=== PATIENT | female | born 1985 | race Caucasian/White ===

== ENCOUNTER 2020-09-01 05:07 | Inpatient (IN) | payer BC ==
[2020-09-01] MEDS ORDERED: Misoprostol 200 MCG Tab PO PRN (05:16)
[2020-09-01] MEDS ORDERED: Methylergonovine 0.2 MG/1 ML Amp IM PRN (05:16)
[2020-09-01] MEDS ORDERED: Lidocaine 1% 50 ML MDV INJECT PRN (05:16)
[2020-09-01] MEDS ORDERED: Water For Irrigation,Sterile 1,000 ML Container IRR PRN (05:16)
[2020-09-01] MEDS ORDERED: Sodium Chloride 0.9% 10 ML SDV IV PRN (05:16)
[2020-09-01] MEDS ORDERED: Nalbuphine 10 MG/1 ML Vial IVPUSH PRN (05:16)
[2020-09-01] MEDS ORDERED: Sodium Chloride 0.9% 2.5 ML Syringe FLUSH PRN (05:16)
[2020-09-01] MEDS ORDERED: Tranexamic Acid 1,000 MG in Sodium Chloride 0.9% 100 ML IV PRN ×2 (05:16→08:55)
[2020-09-01] MEDS ORDERED: Citric Acid/Sodium Citrate Solution 30 ML Cup PO ONE (05:16)
[2020-09-01] MEDS ORDERED: Sodium Chloride 0.9% 10 ML Syringe FLUSH PRN (05:16)
[2020-09-01] MEDS ORDERED: Butorphanol 1 MG/ML SDV IVPUSH PRN (05:16)
[2020-09-01] MEDS ORDERED: Carboprost Tromethamine 250 MCG/1 ML Amp IM PRN (05:16)
[2020-09-01] MEDS ORDERED: ceFAZolin 2 GM in Premix Bag 1 BAG IV ONE (05:16)
[2020-09-01] MEDS ORDERED: Lactated Ringers 1,000 ML IV SCH ×2 (05:30→09:00)
[2020-09-01] MEDS ORDERED: Oxytocin/0.9 % Sodium Chloride 30 UNIT/500 ML BAG IV SCH ×2 (05:30)
[2020-09-01] MEDS: Lactated Ringers 1,000 ML IV SCH ×2 (05:45→06:48)
[2020-09-01] MEDS ORDERED: Morphine PF 10 MG/10 ML SDV ONE (07:32)
[2020-09-01] MEDS ORDERED: Octyl 2-Cyanoacrylate 1 Tube ONE (07:43)
--- NOTE | 2020-09-01 07:49 | PCM.PREANE ---
Preanesthetic Assessment - Anesthesia/Transfusion/Family Hx Anesthesia History: Prior Anesthesia Without Reaction Family History of Anesthesia Reaction: No Transfusion History: No Prior Transfusion(s) Intubation History: Unknown - Review of Systems General: No Symptoms Pulmonary: No Symptoms Cardiovascular: No Symptoms Gastrointestinal: No Symptoms Neurological: No Symptoms Other: Reports: None - Physical Assessment Height: 5 ft 5 in Weight: 101.605 kg ASA Class: 2 Mental Status: Alert & Oriented x3 Airway Class: Mallampati = 1 Dentition: Reports: Normal Dentition Thyro-Mental Finger Breadths: 3 Mouth Opening Finger Breadths: 3 ROM/Head Extension: Full Lungs: Clear to Auscultation, Normal Respiratory Effort Cardiovascular: Regular Rate, Regular Rhythm - Lab Values: Laboratory Last Values WBC 10.72 K/uL (4.0-11.0) 09/01/20 05:46 RBC 4.30 M/uL (4.30-5.90) 09/01/20 05:46 Hgb 12.8 g/dL (12.0-16.0) 09/01/20 05:46 Hct 38.6 % (36.0-46.0) 09/01/20 05:46 MCV 89.8 fL (80.0-98.0) 09/01/20 05:46 MCH 29.8 pg (27.0-32.0) 09/01/20 05:46 MCHC 33.2 g/dL (31.0-37.0) 09/01/20 05:46 RDW Std Deviation 42.7 fl (28.0-62.0) 09/01/20 05:46 RDW Coeff of Geoffrey 13 % (11.0-15.0) 09/01/20 05:46 Plt Count 329 K/uL (150-400) 09/01/20 05:46 MPV 10.10 fL (7.40-12.00) 09/01/20 05:46 Nucleated RBC % 0.0 /100WBC 09/01/20 05:46 Nucleated RBCs # 0 K/uL 09/01/20 05:46 - Allergies Allergies/Adverse Reactions: Allergies Allergy/AdvReac Type Severity Reaction Status Date / Time erythromycin base Allergy Diarrhea Verified 08/26/20 09:37 latex Allergy Rash Verified 08/26/20 09:41 nickel Allergy Rash Verified 10/14/20 09:41 Sulfa (Sulfonamide Allergy Rash Verified 08/26/20 09:37 Antibiotics) sulfamethoxazole Allergy Rash Verified 05/25/20 18:00 [From Bactrim] trimethoprim [From Bactrim] Allergy Rash Verified 08/26/20 09:37 - Blood Blood Available: No - Anesthesia Plan Pre-Op Medication Ordered: None - Acknowledgements Anesthesia Type Planned: Spinal (general anesthesia back-up plan) Pt an Appropriate Candidate for the Planned Anesthesia: Yes Alternatives and Risks of Anesthesia Discussed w Pt/Guardian: Yes Pt/Guardian Understands and Agrees with Anesthesia Plan: Yes PreAnesthesia Questionnaire HEENT History: Reports: Other (See Below) Other HEENT History: wears glasses/contacts, has permanent lower dental retainer Cardiovascular History: Reports: None Respiratory History: Reports: None Gastrointestinal History: Reports: Other (See Below) Other Gastrointestinal History: occasional heartburn with Genitourinary History: Reports: None [employer] History: Reports: Musculoskeletal History: Reports: Fracture Other Musculoskeletal History: hx fx left thumb Neurological History: Reports: Migraines Psychiatric History: Reports: Anxiety, Depression Other Psychiatric History: hx of post depression Endocrine/Metabolic History: Reports: Obesity/BMI 30+ Hematologic History: Reports: None Immunologic History: Reports: None Oncologic (Cancer) History: Reports: None Dermatologic History: Reports: None - Infectious Disease History Infectious Disease History: Reports: Chicken Pox - Past Surgical History Head Surgeries/Procedures: Reports: None HEENT Surgical History: Reports: Oral Surgery Cardiovascular Surgical History: Reports: None Respiratory Surgical History: Reports: None GI Surgical History: Reports: None Female Surgical History: Reports: Section Endocrine Surgical History: Reports: None Neurological Surgical History: Reports: None Musculoskeletal Surgical History: Reports: None Oncologic Surgical History: Reports: None - SUBSTANCE USE Tobacco Use Status *Q: Never Tobacco User Second Hand Smoke Exposure: No Recreational Drug Use History: No - HOME MEDS Home Medications: Home Meds Doxylamine Succinate [Unisom] 0.5 tab PO BEDTIME 08/26/20 [History] Pnv No.95/Ferrous Fum/Folic AC [ Vitamin Tablet] 1 tab PO DAILY 08/26/20 [History] - CURRENT (IN HOUSE) MEDS Current Meds: Current Medications Butorphanol Tartrate (Stadol) 1 mg IVPUSH Q1H PRN PRN Reason: Pain Carboprost Tromethamine (Hemabate Ds) 250 mcg IM ASDIRECTED PRN PRN Reason: Post Hemorrhage Oxytocin/Sodium Chloride (Oxytocin 30 Unit/500 Ml-Ns) 30 unit in 500 mls @ 250 mls/hr IV TITRATE AILIN Lactated Ringer's (Ringers, Lactated) 1,000 mls @ 150 mls/hr IV ASDIRECTED AILIN Oxytocin/Sodium Chloride (Oxytocin 30 Unit/500 Ml-Ns) 30 unit in 500 mls @ 999 mls/hr IV TITRATE AILIN Tranexamic Acid 1,000 mg/ (Sodium Chloride) 110 mls @ 660 mls/hr IV ONETIME PRN PRN Reason: Bleeding Lactated Ringer's (Ringers, Lactated) 1,000 mls @ 500 mls/hr IV BOLUS [facility] Last Admin: 09/01/20 06:48 Dose: 500 mls/hr Documented by: Lidocaine HCl (Xylocaine 1%) 50 ml INJECT ONETIME PRN PRN Reason: Laceration repair Methylergonovine Maleate (Methergine) 0.2 mg IM ASDIRECTED PRN PRN Reason: Post Hemorrhage Misoprostol (Cytotec) 200 mcg PO ONETIME PRN PRN Reason: Post Hemorrhage Nalbuphine HCl (Nubain) 10 mg IVPUSH Q1H PRN PRN Reason: Pain (severe 7-10) Sodium Chloride (Saline Flush) 10 ml FLUSH ASDIRECTED PRN PRN Reason: Keep Vein Open Sodium Chloride (Saline Flush) 2.5 ml FLUSH ASDIRECTED PRN PRN Reason: Keep Vein Open Sodium Chloride (Normal Saline) 10 ml IV ASDIRECTED PRN PRN Reason: IV Use Sterile Water (Sterile Water For Irrigation) 1,000 ml IRR ASDIRECTED PRN PRN Reason: delivery Discontinued Medications Citric Acid/Sodium Citrate (Bicitra Solution) 30 ml PO ONETIME ONE Stop: 09/01/20 05:17 Cefazolin Sodium/Dextrose 2 gm (/ Premix) 50 mls @ 100 mls/hr IV ONETIME ONE Stop: 09/01/20 05:45 Morphine Sulfate (Duramorph Pf) Confirm Administered Dose 10 mg .ROUTE .STK-MED ONE Stop: 09/01/20 07:33 Octyl Cyanoacrylate (Dermabond Advance) Confirm Administered Dose 1 applic .ROUTE .STK-[facility] ONE Stop: 09/01/20 07:44
[2020-09-01] MEDS ORDERED: Oxytocin 10 Units/1 ML SDV ONE (08:21)
[2020-09-01] MEDS ORDERED: Ketorolac 30 MG/ML SDV ONE (08:27)
[2020-09-01] MEDS ORDERED: ePHEDrine 50 MG/ML SDV ONE (08:27)
[2020-09-01] MEDS ORDERED: Dexamethasone 4 MG/ML 5 ML MDV ONE (08:27)
[2020-09-01] MEDS: Ketorolac 30 MG/ML SDV IVPUSH SCH ×3 (08:30→21:04)
[2020-09-01] MEDS ORDERED: Acetaminophen/HYDROcodone 325-5 MG Tab PO PRN (08:44)
[2020-09-01] MEDS ORDERED: Acetaminophen/oxyCODONE 325-5 MG Tab PO PRN ×2 (08:44→08:55)
--- NOTE | 2020-09-01 08:53 | PCM.OPNOTE ---
- General Post-Op/Procedure Note Date of Surgery/Procedure: 09/01/20 Operative Procedure(s): repeat low transverse Pre Op Diagnosis: normal pelvic. Liveborn female 07/22 weight 3340 grams Post-Op Diagnosis: Same Anesthesia Technique: Spinal Primary Surgeon: Charu Biggs Secondary Surgeon: Kiley Blackwood Anesthesia Provider: France Melendez Pathology: none Fluid Replacement, Intraop: 1,900 Output, Urine Amount: 200 EBL in mLs: 500 Complications: None Known Condition: Good
[2020-09-01] MEDS ORDERED: Ibuprofen 800 MG Tab PO PRN (08:55)
[2020-09-01] MEDS ORDERED: Oxytocin 10 Units/1 ML SDV IM PRN (08:55)
[2020-09-01] MEDS ORDERED: Ondansetron 4 MG/2 ML SDV IVPUSH PRN (08:55)
[2020-09-01] MEDS ORDERED: Bisacodyl 10 MG Supp RECTAL PRN (08:55)
[2020-09-01] MEDS ORDERED: Lanolin 100% Cream 7 GM Tube TOP PRN (08:55)
[2020-09-01] MEDS ORDERED: diphenhydrAMINE 50 MG/ML SDV IVPUSH PRN (08:55)
[2020-09-01] MEDS ORDERED: Oxytocin/Lactated Ringers 30 UNIT/500 ML BAG IV SCH (09:00)
--- NOTE | 2020-09-01 09:49 | PCM.POSTAN ---
POST ANESTHESIA ASSESSMENT - MENTAL STATUS Mental Status: Alert, Oriented - VITAL SIGNS Vital Signs: Last Vital Signs Temp 36.9 C 09/01/20 08:53 Pulse 65 09/01/20 09:31 Resp 15 09/01/20 09:31 BP 124/73 09/01/20 09:31 Pulse Ox 95 09/01/20 09:31 - RESPIRATORY Respiratory Status: Respiratory Rate WNL, Airway Patent, O2 Saturation Stable - CARDIOVASCULAR CV Status: Pulse Rate WNL, Blood Pressure Stable - GASTROINTESTINAL GI Status: No Symptoms - PAIN Pain Score: 0 - POST OP HYDRATION Hydration Status: Adequate & Stable - OBSERVATIONS Free Text/Narrative:: No anesthesia problems
[2020-09-01] MEDS: diphenhydrAMINE 50 MG/ML SDV IVPUSH PRN ×2 (12:12→19:44)
--- NOTE | 2020-09-01 14:04 | OR ---
SURGEON: Charu Biggs M.D. DATE OF PROCEDURE: 09/01/2020 PREOPERATIVE DIAGNOSES: 1. A 39-week intrauterine . 2. Prior delivery, desires repeat. POSTOPERATIVE DIAGNOSES: 1. A 39-week intrauterine . 2. Prior delivery, desires repeat. PROCEDURE: Repeat low-transverse section. DIETETIC TECH: Kiley Blackwood MD ANESTHESIA: Spinal. ESTIMATED BLOOD LOSS: 500 mL. FLUIDS: 1900 mL crystalloid. URINE OUTPUT: 200 mL. FINDINGS: Liveborn female, scores of 9 and 9, weighing 3340 g. Normal-appearing uterus, tubes, and ovaries. COMPLICATIONS: None known. DISPOSITION: Stable, to Recovery. BRIEF HISTORY: This is a 35-year-old female. She presents at 39 weeks, prior delivery, desires repeat, with uncomplicated care. She has consented for a repeat including risks of bleeding; infection; injury to bowel, bladder, blood vessels, ureters, or other organs; risk of thromboembolic event; and risk of anesthesia. She has also declined a vaginal trial of labor. Understanding these risks and options, she does desire to proceed with repeat low-transverse section. DESCRIPTION OF PROCEDURE: With the patient in the left tilt position, under adequate spinal analgesia, the abdomen was prepped with chlorhexidine and draped in the usual fashion for abdominal surgery. SCDs were in place. Camacho catheter was in place. An appropriate time-out was held. She had received 2 g of Ancef IV. After documentation of adequate analgesia, the prior cicatrix was excised, and the transverse curvilinear incision was carried through the subcutaneous tissue to the fascia which was scored transversely in the midline. The fascial incision was extended laterally using curved Sanchez scissors. The fascia was elevated from the underlying rectus muscle using sharp and blunt dissection. The rectus muscles were bluntly . The parietal peritoneum was elevated and incised. A finger was placed into the peritoneal cavity, and the incision was extended cephalad and caudad using sharp and blunt dissection. The Rosendo O C- section retractor was placed. The visceral peritoneum over the lower uterine segment was incised to develop an adequate bladder flap. A transverse curvilinear incision was made over the lower uterine segment with a scalpel. A finger was used to enter the amniotic cavity, and with fundal pressure, the head and body were delivered via the uterine incision. The infant was bulb suctioned by nose and mouth, and after 1 minute, the cord was doubly clamped and cut. The was handed to the nurse in attendance at delivery. The infant was a liveborn female, scores of 9 and 9, weighing 3340 g. Cord blood was collected for cord ABGs as well as routine cord blood sampling. Pitocin was initiated after delivery of the infant to assist with delivery of the placenta which was delivered with manual extraction as well as fundal massage, and the cervix was opened with ring forceps. The uterus was cleaned with a dry laparotomy tape. The uterine incision was closed with a running lock suture of 0 Polysorb followed by an imbricating layer of 0 Polysorb. Tubes and ovaries were inspected and were normal. The incision was inspected and was hemostatic. Therefore, the Rosendo O retractor was removed. Final inspection of the incision confirmed hemostasis. The rectus muscle and peritoneum were loosely approximated in the midline using a running mattress suture of 0 Polysorb. The posterior aspect of the fascia was inspected and was hemostatic. The fascial incision was closed with a running suture of 0 Polysorb. The subcutaneous tissue was irrigated. Any areas of bleeding that were noted were cauterized, and the deep subcutaneous tissue was closed with a running suture of 0 Polysorb. Skin was closed with a running subcuticular suture of 3-0 Monocryl followed by Dermabond. Final sponge, needle, and instrument counts were reported as correct. There were no known complications. The patient was transferred to Recovery in good condition. MELBA / BECCA /[id number]
[2020-09-01] MEDS: Docusate Sodium 100 MG Cap PO SCH ×2 (17:33→21:04)
[2020-09-02] MEDS: diphenhydrAMINE 50 MG/ML SDV IVPUSH PRN (00:40)
[2020-09-02] MEDS: Ketorolac 30 MG/ML SDV IVPUSH SCH ×2 (02:57→09:11)
--- NOTE | 2020-09-02 06:15 | PCM48HPAN ---
Post Anesthesia Note - EVALUATION WITHIN 48HRS OF ANESTHETIC Vital Signs in Normal Range: Yes Patient Participated in Evaluation: Yes Respiratory Function Stable: Yes Airway Patent: Yes Cardiovascular Function Stable: Yes Hydration Status Stable: Yes Pain Control Satisfactory: Yes Nausea and Vomiting Control Satisfactory: Yes Mental Status Recovered: Yes Vital Signs: Last Vital Signs Temp 36.8 C 09/02/20 04:00 Pulse 77 09/02/20 05:00 Resp 16 09/02/20 05:00 BP 110/68 09/02/20 04:00 Pulse Ox 95 09/02/20 05:00 - COMMENTS/OBSERVATIONS Free Text/Narrative:: Patient has concerns about swelling in her legs, otherwise no complaints at this time. I informed her that some of the swelling is probably a result of the fluid shifts in her body. I also told her to let Dr. Biggs know about the bilateral leg swelling. There were no apparent anesthetic complications at this time.
[2020-09-02] MEDS: Docusate Sodium 100 MG Cap PO SCH (09:12)
--- NOTE | 2020-09-02 10:30 | PCM.PNPP ---
- General Info Date of Service: 09/02/20 Functional Status: Reports: Pain Controlled, Tolerating Diet, Ambulating, Urinating - Review of Systems General: Reports: No Symptoms HEENT: Reports: No Symptoms Pulmonary: Reports: No Symptoms Cardiovascular: Reports: No Symptoms Gastrointestinal: Reports: No Symptoms Genitourinary: Reports: No Symptoms Musculoskeletal: Reports: No Symptoms Skin: Reports: No Symptoms Neurological: Reports: No Symptoms Psychiatric: Reports: No Symptoms - Patient Data Vital Signs - Most Recent: Last Vital Signs Temp 36.8 C 09/02/20 04:00 Pulse 78 09/02/20 06:00 Resp 16 09/02/20 06:00 BP 110/68 09/02/20 04:00 Pulse Ox 95 09/02/20 06:00 Weight - Most Recent: 101.605 kg I&O - Last 24 Hours: Intake & Output 09/01/20 09/02/20 09/02/20 22:59 06:59 14:59 Output Total 2925 775 Balance -2925 -775 Lab Results - Last 24 Hours: Laboratory Results - last 24 hr 09/01/20 09/02/20 Range/Units 09:52 05:20 Hgb 10.9 L (12.0-16.0) g/dL Hct 33.6 L (36.0-46.0) % Screen NEGATIVE (NEGATIVE) RhIG Candidate? YES Rhogam Indicated YES, BABY RH POS H Med Orders - Current: Current Medications Hydrocodone Bitart/Acetaminophen ([place] 325-5 Mg) 2 tab PO Q6H PRN PRN Reason: Pain (moderate 4-6) Bisacodyl (Dulcolax) 10 mg RECTAL ONETIME PRN PRN Reason: Constipation Diphenhydramine HCl (Benadryl) 25 mg IVPUSH Q6H PRN PRN Reason: Itching or Nausea Docusate Sodium (Colace) 100 mg PO BID AILIN Last Admin: 09/02/20 09:12 Dose: 100 mg Documented by: Emollient Ointment (Lansinoh Hpa) 0 gm TOP ASDIRECTED PRN PRN Reason: Sore Nipples Lactated Ringer's (Ringers, Lactated) 1,000 mls @ 125 mls/hr IV ASDIRECTED AILIN Oxytocin/Lactated Ringer's (Pitocin In Lr 30 Units/500 Ml) 30 unit in 500 mls @ 999 mls/hr IV TITRATE AILIN; Protocol Tranexamic Acid 1,000 mg/ (Sodium Chloride) 110 mls @ 660 mls/hr IV ONETIME PRN PRN Reason: Bleeding Ibuprofen (Motrin) 800 mg PO Q8H PRN PRN Reason: mild pain or fever Ondansetron HCl (Zofran) 4 mg IVPUSH Q4H PRN PRN Reason: Nausea/Vomiting Oxycodone/Acetaminophen (Percocet 325-5 Mg) 1 tab PO ONETIME PRN PRN Reason: Pain (moderate 4-6) Oxycodone/Acetaminophen (Percocet 325-5 Mg) 1 tab PO Q4H PRN PRN Reason: Pain (moderate 4-6) Oxycodone/Acetaminophen (Percocet 325-5 Mg) 2 tab PO Q4H PRN PRN Reason: Pain (moderate 4-6) Oxytocin (Pitocin) 10 unit IM ASDIRECTED PRN PRN Reason: Excessive Vaginal Bleeding Discontinued Medications Butorphanol Tartrate (Stadol) 1 mg IVPUSH Q1H PRN PRN Reason: Pain Carboprost Tromethamine (Hemabate Ds) 250 mcg IM ASDIRECTED PRN PRN Reason: Post Hemorrhage Citric Acid/Sodium Citrate (Bicitra Solution) 30 ml PO ONETIME ONE Stop: 09/01/20 05:17 Last Admin: 09/01/20 17:34 Dose: Not Given Documented by: Dexamethasone (Dexamethasone) Confirm Administered Dose 20 mg .ROUTE .STK-MED ONE Stop: 09/01/20 08:28 Diphenhydramine HCl (Benadryl) 25 mg IVPUSH Q4H PRN PRN Reason: Itching Stop: 09/02/20 08:44 Last Admin: 09/02/20 00:40 Dose: 25 mg Documented by: Ephedrine Sulfate (Ephedrine Sulfate) Confirm Administered Dose 50 mg .ROUTE .STK-MED ONE Stop: 09/01/20 08:28 Oxytocin/Sodium Chloride (Oxytocin 30 Unit/500 Ml-Ns) 30 unit in 500 mls @ 250 mls/hr IV TITRATE AILIN Lactated Ringer's (Ringers, Lactated) 1,000 mls @ 150 mls/hr IV ASDIRECTED AILIN Oxytocin/Sodium Chloride (Oxytocin 30 Unit/500 Ml-Ns) 30 unit in 500 mls @ 999 mls/hr IV TITRATE [facility] Tranexamic Acid 1,000 mg/ (Sodium Chloride) 110 mls @ 660 mls/hr IV ONETIME PRN PRN Reason: Bleeding Cefazolin Sodium/Dextrose 2 gm (/ Premix) 50 mls @ 100 mls/hr IV ONETIME ONE Stop: 09/01/20 05:45 Last Admin: 09/01/20 17:34 Dose: Not Given Documented by: Lactated Ringer's (Ringers, Lactated) 1,000 mls @ 500 mls/hr IV BOLUS [facility] Last Admin: 09/01/20 06:48 Dose: 500 mls/hr Documented by: Ketorolac Tromethamine (Toradol) Confirm Administered Dose 30 mg .ROUTE .STK-MED ONE Stop: 09/01/20 08:28 Ketorolac Tromethamine (Toradol) 30 mg IVPUSH Q6H [facility] Stop: 09/02/20 09:01 Last Admin: 09/02/20 09:11 Dose: 30 mg Documented by: Lidocaine HCl (Xylocaine 1%) 50 ml INJECT ONETIME PRN PRN Reason: Laceration repair Methylergonovine Maleate (Methergine) 0.2 mg IM ASDIRECTED PRN PRN Reason: Post Hemorrhage Misoprostol (Cytotec) 200 mcg PO ONETIME PRN PRN Reason: Post Hemorrhage Morphine Sulfate (Duramorph Pf) Confirm Administered Dose 10 mg .ROUTE .STK-MED ONE Stop: 09/01/20 07:33 Nalbuphine HCl (Nubain) 10 mg IVPUSH Q1H PRN PRN Reason: Pain (severe 7-10) Octyl Cyanoacrylate (Dermabond Advance) Confirm Administered Dose 1 applic .ROUTE .STK-MED ONE Stop: 09/01/20 07:44 Last Admin: 09/01/20 17:32 Dose: Not Given Documented by: Oxytocin (Pitocin) Confirm Administered Dose 20 unit .ROUTE .STK-MED ONE Stop: 09/01/20 08:22 Sodium Chloride (Saline Flush) 10 ml FLUSH ASDIRECTED PRN PRN Reason: Keep Vein Open Sodium Chloride (Saline Flush) 2.5 ml FLUSH ASDIRECTED PRN PRN Reason: Keep Vein Open Sodium Chloride (Normal Saline) 10 ml IV ASDIRECTED PRN PRN Reason: IV Use Sterile Water (Sterile Water For Irrigation) 1,000 ml IRR ASDIRECTED PRN PRN Reason: delivery - Infant Interaction Support Person: - Recovery Exam Fundal Tone: Firm Fundal Level: 1 Fingerbreadths Below Umbilicus Fundal Placement: Midline Lochia Amount: Scant Lochia Color: Rubra/Red Perineum Description: Intact, Minimal Bruising/Swelling Episiotomy/Laceration: None Bladder Status: Indwelling Catheter in Place Urinary Elimination: Indwelling Catheter - Exam General: Alert, Oriented Neck: Supple Lungs: Normal Respiratory Effort GI/Abdominal Exam: Soft, Non-Tender, No Distention Extremities: Normal Inspection, Non-Tender, Normal Capillary Refill. No: No Pedal Edema (trace pedal edema equal bilaterally, right thigh a little more swollen than left, no erythema, tenderness or pain ) Skin: Warm, Dry, Intact Wound/Incisions: Dressing Dry and Intact Neurological: No New Focal Deficit Psy/Mental Status: Alert, Normal Affect, Normal Mood - Problem List & Annotations (1) Previous delivery affecting , delivered SNOMED Code(s): 771297223, 046052125 Code(s): O34.219 - MATERNAL CARE FOR UNSP TYPE SCAR FROM PREVIOUS DEL Status: Acute Current Visit: Yes (2) delivery delivered SNOMED Code(s): 041465576 Code(s): O82 - ENCOUNTER FOR DELIVERY WITHOUT INDICATION Status: Acute Current Visit: Yes - Problem List Review Problem List Initiated/Reviewed/Updated: Yes - My Orders Last 24 Hours: My Active Orders 09/01/20 09:52 SCREEN [BBK] Routine RH IMMUNE GLOBULIN [BBK] Routine RHOGAM, [RHIG WORKUP, ] [BBK] Routine 09/01/20 Lunch Regular Diet [DIET] - Assessment Assessment:: POD#1 after repeat low transverse , patient concerned about thigh swelling, on exam, normal postop changes 0.5 inches difference between thighs. Breast feeding well, and would like to go home this after noon if possible. - Plan Plan:: Start oral pain medication, dressing off, may shower. Recheck thigh measurements this afternoon and if stable, may be discharged to home, if increased will get doppler (clinical low suspicion). Discharge instructions reviewed, may also stay until tomorrow if any concerns.
[2020-09-02] MEDS: Acetaminophen/oxyCODONE 325-5 MG Tab PO PRN ×2 (11:37→17:51)
== END 2020-09-02 19:18 | disposition home or self-care (01) | DRG 540 ==
LOC: MW.OB 05:07
PROVIDERS: ADMIT Obstetrics & Gynecology; ATTEND Obstetrics & Gynecology
PROC: 10D00Z1 Extraction of Products of Conception, Low, Open Approach (ICD-10-PCS; principal; 2020-09-01)
PROC: 3E0234Z Introduction of Serum, Toxoid and Vaccine into Muscle, Percutaneous Approach (ICD-10-PCS; 2020-09-02)
DX: O34.211 Maternal care for low transverse scar from previous cesarean delivery (principal); Z37.0 Single live birth; Z3A.39 39 weeks gestation of pregnancy; O26.893 Other specified pregnancy related conditions, third trimester; Z67.11 Type A blood, Rh negative
CPT/HCPCS: 36415; 59025; 82803; 85014; 85018; 85027; 85460; 86592; 86850; 86900; 86901; A9270-GY; J1100; J1200; J1885; J2270; J2590; J2792; J7120

== ENCOUNTER 2021-05-13 08:50 | Emergency (ER) | payer BC ==
[2021-05-13] MEDS ORDERED: Sodium Chloride 0.9% 1,000 ML IV ONE (09:09)
[2021-05-13] MEDS ORDERED: Sodium Chloride 0.9% 10 ML Syringe FLUSH PRN (09:09)
[2021-05-13] MEDS ORDERED: Sodium Chloride 0.9% 2.5 ML Syringe FLUSH PRN (09:09)
--- NOTE | 2021-05-13 09:31 | CR ---
INDICATION: Chest pain COMPARISON: None TECHNIQUE: Single-view portable AP upright chest radiograph FINDINGS: TUBES AND LINES: None. HEART AND MEDIASTINUM: The heart size is normal. The mediastinal contour appears normal for patient age. LUNGS AND PLEURAL SPACES: The lungs appear normal.The pleural spaces are unremarkable. OSSEOUS STRUCTURES: Age-appropriate appearance. No acute focal finding. IMPRESSION: No evidence of active pulmonary disease. Dictated by Reuben Lopez MD @ 05/13/2021 9:28:[address] Reuben Lopez @ May 13 2021 9:28AM
--- NOTE | 2021-05-13 09:42 | EDM.PDOC ---
ED HPI GENERAL MEDICAL PROBLEM - General Chief Complaint: Chest Pain Stated Complaint: CHEST PAIN Time Seen by Provider: 05/13/21 09:03 - History of Present Illness INITIAL COMMENTS - FREE TEXT/NARRATIVE: HISTORY AND PHYSICAL: History of present illness: This is a 35-year-old female who presents ER today secondary concerns about chest discomfort. Patient reports that she feels that it is an ache in her midsternal and midepigastric region that is been present for several days. Patient denies any recent fevers, shakes, chills, nausea, vomiting, diarrhea, dysuria, frequency, urgency, abdominal pain. Patient reports that a cousin of hers secondary to prolonged QT syndrome. She reports that she was tested at [place] for the genetic sequence for the prolonged QT and she was told that he does not have it. Patient reports that her daughter is recently contracted a URI and has been getting nebs at home. Initially she thought that the discomfort that she was having was secondary to the nebs however today she was concerned and came to the ED to be further evaluated. Patient reports that the discomfort is worse when she is laying flat before she goes to sleep. She reports that the pain is not exacerbated with exertion nor is it relieved with rest. Patient denies any associated diaphoresis or nausea with it. Patient denies any pain going down her jaw or arm but does occasionally feel some discomfort in her neck. Review of systems: As per history of present illness and below otherwise all systems reviewed and negative. Past medical history: As per history of present illness and as reviewed below otherwise noncontributory. Surgical history: As per history of present illness and as reviewed below otherwise noncontributory. Social history: No reported history of drug abuse. Family history: As per history of present illness and as reviewed below otherwise noncontributory. Physical exam: This patient was seen and evaluated during the 2019 SARS-CoV-2 novel coronavirus pandemic period. Community viral transmission is ongoing at time of this encounter and the emergency department is operating under pandemic response procedures. Constitutional: Patient is oriented to person, place, and time. Appears well- developed and well-nourished. No distress. HEENT: Moist mucous membranes Head: Normocephalic and atraumatic Eyes: Right eye exhibits no discharge. Left eye exhibits no discharge. No scleral icterus Neck: Normal range of motion. No tracheal deviation present. Cardiovascular: Normal rate and regular rhythm. Pulmonary: Effort normal, no respiratory distress. Abdominal: No distention Musculoskeletal: Normal range of motion Neurologic: Alert and oriented to person, place and time. Skin: [place], warm and dry. Psychiatric: Normal mood and affect. Behavior is normal. Judgment and thought content normal. Nursing note and vital signs have been reviewed Diagnostics: Chest Xray: Normal cardiac silhouette No infiltrates or effusions identified. No PTX No evidence of acute bony fracture. As interpreted by ER MD: Josy Looney: [] Assessment and plan: This is a 35-year-old female who presents ER today with atypical presentation of chest pain. Patient's pain does not appear to be cardiac in origin through her history nor does it appear to be mechanical in nature by her exam. Patient will have basic labs obtained including a CBC, CMP, troponin. Patient's EKG is unremarkable and normal. Patient has an unremarkable chest x-ray. Patient be reevaluated after her labs. Patient's labs are all within normal limits. Patient's pain does not appear to be consistent with cardiac etiology. Patient be discharged home Definitive disposition and diagnosis as appropriate pending reevaluation and review of above. chest pain Pain Score (Numeric/FACES): 3 - Related Data Allergies Allergy/AdvReac Type Severity Reaction Status Date / Time erythromycin base Allergy Diarrhea Verified 05/13/21 08:51 latex Allergy Rash Verified 05/13/21 08:51 nickel Allergy Rash Verified 05/13/21 08:51 Sulfa (Sulfonamide Allergy Rash Verified 05/13/21 08:51 Antibiotics) sulfamethoxazole Allergy Rash Verified 05/13/21 08:51 [From Bactrim] trimethoprim [From Bactrim] Allergy Rash Verified 05/13/21 08:51 Home Meds: Home Meds . 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: Musculoskeletal History: Reports: Fracture Other Musculoskeletal History: hx fx left thumb Neurological History: Reports: Migraines Psychiatric History: Reports: Anxiety, Depression Other Psychiatric History: hx of post depression Endocrine/Metabolic History: Reports: Obesity/BMI 30+ Hematologic History: Reports: None Immunologic History: Reports: None Oncologic (Cancer) History: Reports: None Dermatologic History: Reports: None - Infectious Disease History Infectious Disease History: Reports: Chicken Pox - Past Surgical History Head Surgeries/Procedures: Reports: None HEENT Surgical History: Reports: Oral Surgery Cardiovascular Surgical History: Reports: None Respiratory Surgical History: Reports: None GI Surgical History: Reports: None Female Surgical History: Reports: Section Endocrine Surgical History: Reports: None Neurological Surgical History: Reports: None Musculoskeletal Surgical History: Reports: None Oncologic Surgical History: Reports: None Social & Family History - Caffeine Use Caffeine Use: Reports: None ED ROS GENERAL - Review of Systems Review Of Systems: See Below ED EXAM, GENERAL - Physical Exam Exam: See Below #1 Interpretation EKG Interpretation Comments: EKG: As interpreted by ER physician: Josy: Nonspecific ST-T wave abnormalities Normal axis No evidence of ST elevation TX Normal sinus rhythm heart rate of 81 Course - Vital Signs Last Recorded V/S: Last Vital Signs Temp 98.0 F 05/13/21 09:57 Pulse 80 05/13/21 09:57 Resp 18 05/13/21 09:57 BP 118/69 05/13/21 09:57 Pulse Ox 98 05/13/21 09:57 - Orders/Labs/Meds Orders: Active Orders 24 hr Category Date Time Status EKG Documentation Completion [RC] AM Care 05/13/21 09:09 Active Sodium Chloride 0.9% [Saline Flush] Med 05/13/21 09:09 Active 10 ml FLUSH ASDIRECTED PRN Sodium Chloride 0.9% [Saline Flush] Med 05/13/21 09:09 Active 2.5 ml FLUSH ASDIRECTED PRN Saline Lock Insert [OM.PC] Stat Oth 05/13/21 09:09 Ordered Medication Orders Sodium Chloride (Sodium Chloride 0.9% 10 Ml Syringe) 10 ml FLUSH ASDIRECTED PRN PRN Reason: Keep Vein Open Last Admin: 05/13/21 09:15 Dose: 10 ml Documented by: JOHN Sodium Chloride (Sodium Chloride 0.9% 2.5 Ml Syringe) 2.5 ml FLUSH ASDIRECTED PRN PRN Reason: Keep Vein Open Last Admin: 05/13/21 09:15 Dose: 2.5 ml Documented by: JOHN Labs: Laboratory Tests 05/13/21 05/13/21 Range/Units 09:00 09:00 WBC 5.88 (4.0-11.0) K/uL RBC 4.63 (4.30-5.90) M/uL Hgb 14.0 (12.0-16.0) g/dL Hct 41.5 (36.0-46.0) % MCV 89.6 (80.0-98.0) fL MCH 30.2 (27.0-32.0) pg MCHC 33.7 (31.0-37.0) g/dL RDW Std Deviation 40.1 (28.0-62.0) fl RDW Coeff of Geoffrey 12 (11.0-15.0) % Plt Count 303 (150-400) K/uL MPV 10.00 (7.40-12.00) fL Neut % (Auto) 62.2 (48.0-80.0) % Lymph % (Auto) 31.5 (16.0-40.0) % [place] % (Auto) 5.1 (0.0-15.0) % Eos % (Auto) 1.0 (0.0-7.0) % Baso % (Auto) 0.2 (0.0-1.5) % Neut # (Auto) 3.7 (1.4-5.7) K/uL Lymph # (Auto) 1.9 (0.6-2.4) K/uL [place] # (Auto) 0.3 (0.0-0.8) K/uL Eos # (Auto) 0.1 (0.0-0.7) K/uL Baso # (Auto) 0.0 (0.0-0.1) K/uL Nucleated RBC % 0.0 /100WBC Nucleated RBCs # 0 K/uL Sodium 140 (136-145) mmol/L Potassium 3.7 (3.5-5.1) mmol/L Chloride 101 (98-107) mmol/L Carbon Dioxide 29.5 (21.0-32.0) mmol/L BUN 9 (7.0-18.0) mg/dL Creatinine 0.8 (0.6-1.0) mg/dL Est Cr Clr Drug Dosing 90.00 mL/min Estimated GFR (MDRD) > 60.0 ml/min Glucose 86 (74-106) mg/dL Calcium 9.3 (8.5-10.1) mg/dL Total Bilirubin 0.5 (0.2-1.0) mg/dL AST 11 L (15-37) IU/L ALT 26 (14-63) IU/L Alkaline Phosphatase 66 (46-116) U/L Troponin I < 0.050 (0.000-0.056) ng/mL Total Protein 7.3 (6.4-8.2) g/dL Albumin 3.9 (3.4-5.0) g/dL Globulin 3.4 (2.6-4.0) g/dL Albumin/Globulin Ratio 1.1 (0.9-1.6) Meds: Medications Generic Name Dose Route Start Last Admin Trade Name Frerobert PRN Reason Stop Dose Admin Sodium Chloride 10 ml 05/13/21 09:09 05/13/21 09:15 Sodium Chloride 0.9% 10 Ml Syringe FLUSH 10 ml ASDIRECTED PRN Administration Keep Vein Open Sodium Chloride 2.5 ml 05/13/21 09:09 05/13/21 09:15 Sodium Chloride 0.9% 2.5 Ml Syringe FLUSH 2.5 ml ASDIRECTED PRN Administration Keep Vein Open Discontinued Medications Generic Name Dose Route Start Last Admin Trade Name Frerobert PRN Reason Stop Dose Admin Sodium Chloride 1,000 mls @ 999 mls/hr 05/13/21 09:09 05/13/21 09:15 Normal Saline IV 05/13/21 10:09 999 mls/hr .Bolus ONE Administration Departure - Departure Time of Disposition: 10:36 Disposition: Home, Self-Care 01 Condition: Good Clinical Impression: Atypical chest pain - Discharge Information Instructions: Nonspecific Chest Pain, Adult Referrals: Charu Biggs MD [Primary Care Provider] - Forms: ED Department Discharge Additional Instructions: Your seen and evaluated in the ER today secondary to discomfort in your chest. The etiology of your pain is unclear however your work-up in the emergency department was normal. Your chest x-ray, EKG, blood tests were all within normal limits. I would recommend that you try Prilosec [id number] or Maalox/Tums at night to see if that might help the discomfort that you are experiencing. If you are still having pain and discomfort I would recommend that you follow-up with your family doctor within 1 to 2 weeks to be reeva luated. The following information is given to patients seen in the emergency department who are being discharged to home. This information is to outline your options for follow-up care. We provide all patients seen in our emergency department with a follow-up referral. The need for follow-up, as well as the timing and circumstances, are variable depending upon the specifics of your emergency department visit. If you don't have a primary care physician on staff, we will provide you with a referral. We always advise you to contact your personal physician following an emergency department visit to inform them of the circumstance of the visit and for follow-up with them and/or the need for any referrals to a consulting specialist. The emergency department will also refer you to a specialist when appropriate. This referral assures that you have the opportunity for follow-up care with a specialist. All of these measure are taken in an effort to provide you with optimal care, which includes your follow-up. Under all circumstances we always encourage you to contact your private physician who remains a resource for coordinating your care. When calling for follow-up care, please make the office aware that this follow-up is from your recent emergency room visit. If for any reason you are refused follow-up, please contact the [facility] Emergency Department at and asked to speak to the emergency department charge nurse. [facility] [address] [place] [id number] [facility] [address] [place] [id number] Sepsis Event Note (ED) - Evaluation Sepsis Screening Result: No Definite Risk - Focused Exam Vital Signs: Vital Signs Temp Pulse Resp BP Pulse Ox 05/13/21 09:57 98.0 F 80 18 118/69 98 05/13/21 09:09 82 18 124/83 99 05/13/21 08:54 97.5 F 88 18 143/87 H 98 - My Orders Last 24 Hours: My Active Orders 05/13/21 09:09 EKG Documentation Completion [RC] AM Sodium Chloride 0.9% [Saline Flush] 10 ml FLUSH ASDIRECTED PRN Sodium Chloride 0.9% [Saline Flush] 2.5 ml FLUSH ASDIRECTED PRN Saline Lock Insert [OM.PC] Stat - Assessment/Plan Last 24 Hours: My Active Orders 05/13/21 09:09 EKG Documentation Completion [RC] AM Sodium Chloride 0.9% [Saline Flush] 10 ml FLUSH ASDIRECTED PRN Sodium Chloride 0.9% [Saline Flush] 2.5 ml FLUSH ASDIRECTED PRN Saline Lock Insert [OM.PC] Stat
[2021-05-13 10:07] LABS: BLOOD UREA NITROGEN,BUN 9 mg/dL (7.0-18.0); CARBON DIOXIDE,CO2 29.5 mmol/L (21.0-32.0); CHLORIDE,CL 101 mmol/L (98-107); GLUCOSE RANDOM 86 mg/dL (74-106); POTASSIUM,K 3.7 mmol/L (3.5-5.1); SODIUM,NA 140 mmol/L (136-145)
== END 2021-05-13 10:44 | disposition home or self-care (01) ==
LOC: MW.ED 08:50
DX: R07.89 Other chest pain (principal); E66.9 Obesity, unspecified; Z91.040 Latex allergy status; Z88.2 Allergy status to sulfonamides; Z91.09 Other allergy status, other than to drugs and biological substances; Z88.1 Allergy status to other antibiotic agents; Z68.29 Body mass index [BMI] 29.0-29.9, adult
CPT/HCPCS: 36415; 71045; 80053; 84484; 85025; 93005; 99285; J7030